=== PATIENT | male | born 1980 | race African-American/Black ===

== ENCOUNTER 2018-04-28 07:36 | Emergency (ER) | payer MEDICAID ==
[~2018-04-28] VITALS: Ht 182.9 cm; Wt 90.6 kg
[2018-04-28 07:39] VITALS: BP 135/85
== END 2018-04-28 08:48 | disposition home or self-care (01) ==
LOC: ED 08:42
DX: H00.025 Hordeolum internum left lower eyelid (principal)
CPT/HCPCS: 99283